=== PATIENT | male | born 1965 | race Caucasian/White ===

== ENCOUNTER 2016-05-05 13:03 | Day surgery (SDC) | payer OTHER ==
[~2016-05-05] VITALS: Ht 182.9 cm; Wt 123.3 kg
[~2016-05-05 13:03] MED LIST: ALBUTEROL0.09 MG/A1 IH; AMBIEN 10MG10 MG PO; ASPIRIN 81M81 MG/TA2 PO; BENICAR 20MG TA20 MG PO; BRILINTA90 MG PO; CELEXA 20MG20 MG/TAB PO; COLACE 100100 MG/CAP PO; CRESTOR10 MG PO; DAZIDOX10 MG PO; DESYREL 100MG100 MG PO; DESYREL 50MG50 MG PO; FLEXERIL 1010 MG/TAB PO; FLEXERIL10 MG PO; FLOMAX 0.40.4 MG/CAP PO; FLONASEALLERGY NS; FLOVENT 44MCG I13 GM IH; GENTLE LAXATIVE5 MG PO; HCTZ 25MG TAB25 MG PO; KLONOPIN 0.5MG0.5 MG PO; KLONOPIN WAFER0.5 MG PO; LEXAPRO 10MG10 MG PO; LIPITOR 40MG TA40 MG PO; LIPITOR20 MG PO; LOPRESSOR 225 MG/TAB PO; MINIPRESS 1M1 MG/CAP PO; MULTI VITAMINS1 TAB PO; MULTIPLE VITAMI1 TA5 PO; NITROQUICK0.4 MG SL; NITROSTAT0.6 MG SL; NO HOME MEDICATIONS; NORCO 325 MG-51 TAB PO; OXAYDO7.5 MG PO; OXY IR5 MG PO; PRILOTC PO; PRINIVIL10 MG PO; PRINIVIL40 MG PO; PROTONIX 40MG T40 MG PO; PYRIDIUM200 M1 PO; VITAMIN D3400 IU PO; ZITHROMAX 250M250 MG PO; ZOCOR 40MG40 MG PO; ZOLOFT 100MG100 MG PO
[2016-05-05 14:23] VITALS: BP 140/78; PULSE 72; TEMP 97.9
[2016-05-05 16:10] VITALS: BP 136/78; PULSE 70; TEMP 98.1
[2016-05-05 16:25] VITALS: BP 152/74; PULSE 74
[2016-05-05 16:40] VITALS: BP 134/77; PULSE 79
[2016-05-05] MEDS ORDERED: CIPRO 500MG TA500 MG PO (16:46)
[2016-05-05 16:55] VITALS: BP 143/82; PULSE 68
[2016-05-05 17:20] VITALS: BP 164/88; PULSE 82
== END 2016-05-05 17:37 | disposition home or self-care (01) ==
LOC: SDCO 13:03
DX: D09.0 Carcinoma in situ of bladder (principal); C67.6 Malignant neoplasm of ureteric orifice; F17.210 Nicotine dependence, cigarettes, uncomplicated; Z85.51 Personal history of malignant neoplasm of bladder; Z85.53 Personal history of malignant neoplasm of renal pelvis; I12.9 Hypertensive chronic kidney disease with stage 1 through stage 4 chronic kidney disease, or unspecified chronic kidney disease; N18.3 Chronic kidney disease, stage 3 (moderate)
CPT/HCPCS: J0690; J1100; J2405; J2704; J3010; J7120; Q9967

== ENCOUNTER 2016-06-10 08:30 | Inpatient (IN) | payer OTHER ==
[~2016-06-10] VITALS: Ht 182.9 cm; Wt 120.9 kg
[~2016-06-10 08:30] MED LIST changes: +CIPRO 500MG TA500 MG PO
[2016-06-23] VITALS (12 sets, daily range): BP systolic 92–125; BP diastolic 45–76; PULSE 71–122; TEMP 98–99.2
[2016-06-23] MEDS ORDERED: PRINIVIL10 MG PO (06:16)
[2016-06-23 06:31] LABS: MEAN CELL VOLUME 92 fl (80.0-100.0); MEAN CORPUSCULAR HGB CONC 33 g/dl (33.0-37.0); MEAN PLATELET VOLUME 8.7 fl (7.4-10.4); PLATELET COUNT 190 K/mm3 (130-400); RED BLOOD COUNT 3.78 M/mm3 (4.20-5.60); REDCELL DISTRIBUTION WIDTH-CV 14.2 % (11.5-14.5); WHITE BLOOD COUNT 5.6 K/mm3 (4.8-10.8)
[2016-06-23 06:44] LABS: HEMATOCRIT 34.6 % (42.0-52.0); HEMOGLOBIN 11.3 g/dl (13.5-18.0); MEAN CORPUSCULAR HEMOGLOBIN 30 pg (27.0-31.0)
[2016-06-23 14:29] LABS: MEAN CELL VOLUME 90 fl (80.0-100.0); MEAN CORPUSCULAR HGB CONC 33 g/dl (33.0-37.0); PLATELET COUNT 144 K/mm3 (130-400); RED BLOOD COUNT 3.32 M/mm3 (4.20-5.60); REDCELL DISTRIBUTION WIDTH-CV 14.6 % (11.5-14.5); WHITE BLOOD COUNT 11.8 K/mm3 (4.8-10.8)
[2016-06-23 14:36] LABS: ADD PATHOLOGY DIFF REVIEW NO; CALCIUM 7.1 mg/dL (8.4-10.2); CREATININE, serum 2.06 mg/dL (0.66-1.25); HEMATOCRIT 29.8 % (42.0-52.0); HEMOGLOBIN 9.9 g/dl (13.5-18.0); MEAN CORPUSCULAR HEMOGLOBIN 30 pg (27.0-31.0)
[2016-06-23 15:08] LABS: BAND 43 % (0-10); EOSINOPHIL 1 % (0-4); NEUTROPHILS 51 % (42.0-75.2); PLATELET ESTIMATE NORMAL (NORMAL); TOTAL CELLS COUNTED 100
[2016-06-24] VITALS (18 sets, daily range): BP systolic 115–164; BP diastolic 42–94; PULSE 91–120; TEMP 97.5–98.5
[2016-06-24 06:55] LABS: MEAN CELL VOLUME 89 fl (80.0-100.0); MEAN CORPUSCULAR HGB CONC 33 g/dl (33.0-37.0); MEAN PLATELET VOLUME 8.9 fl (7.4-10.4); PLATELET COUNT 168 K/mm3 (130-400); RED BLOOD COUNT 3.57 M/mm3 (4.20-5.60); REDCELL DISTRIBUTION WIDTH-CV 15.5 % (11.5-14.5); WHITE BLOOD COUNT 18.2 K/mm3 (4.8-10.8)
[2016-06-24 07:02] LABS: ADD PATHOLOGY DIFF REVIEW NO; HEMATOCRIT 31.7 % (42.0-52.0); HEMOGLOBIN 10.6 g/dl (13.5-18.0); MEAN CORPUSCULAR HEMOGLOBIN 30 pg (27.0-31.0)
[2016-06-24 07:17] LABS: CREATININE, serum 1.98 mg/dL (0.66-1.25); MAGNESIUM 1.5 mg/dL (1.6-2.3); PHOSPHOROUS 1.8 mg/dL (2.5-4.5)
[2016-06-24 07:23] LABS: POTASSIUM 6.1 mmol/L (3.4-5.0)
[2016-06-24 10:04] LABS: BAND 21 % (0-10); NEUTROPHILS 69 % (42.0-75.2); PLATELET ESTIMATE NORMAL (NORMAL); TOTAL CELLS COUNTED 100
[2016-06-24 10:07] LABS: ANISOCYTOSIS 1+; TOXIC GRANULATION PRESENT
[2016-06-25] VITALS (13 sets, daily range): BP systolic 86–136; BP diastolic 42–104; PULSE 69–128; TEMP 97.2–98.3
[2016-06-25 08:04] LABS: ALBUMIN 2.5 gm/dL (3.5-5.0); CALCIUM 6.2 mg/dL (8.4-10.2); CREATININE, serum 3.07 mg/dL (0.66-1.25); MAGNESIUM 1.5 mg/dL (1.6-2.3); PHOSPHOROUS 3.8 mg/dL (2.5-4.5); POTASSIUM 5.2 mmol/L (3.4-5.0)
[2016-06-25 11:14] LABS: MEAN CELL VOLUME 92 fl (80.0-100.0); MEAN CORPUSCULAR HGB CONC 33 g/dl (33.0-37.0); MEAN PLATELET VOLUME 9.3 fl (7.4-10.4); PLATELET COUNT 150 K/mm3 (130-400); RED BLOOD COUNT 3.04 M/mm3 (4.20-5.60); REDCELL DISTRIBUTION WIDTH-CV 15.6 % (11.5-14.5); WHITE BLOOD COUNT 18.3 K/mm3 (4.8-10.8)
[2016-06-25 11:15] LABS: HEMATOCRIT 27.9 % (42.0-52.0); HEMOGLOBIN 9.2 g/dl (13.5-18.0); MEAN CORPUSCULAR HEMOGLOBIN 30 pg (27.0-31.0)
[2016-06-25 11:16] LABS: ADD PATHOLOGY DIFF REVIEW NO
[2016-06-25 12:03] LABS: BAND 22 % (0-10); EOSINOPHIL 1 % (0-4); METAMYELOCYTE 2 % (0-0); PLATELET ESTIMATE NORMAL (NORMAL)
[2016-06-25 12:04] LABS: NEUTROPHILS 60 % (42.0-75.2); TOTAL CELLS COUNTED 102
[2016-06-26] VITALS (7 sets, daily range): BP systolic 111–125; BP diastolic 58–70; PULSE 102–124; TEMP 96.9–98.5
[2016-06-26 08:03] LABS: ALBUMIN 2.2 gm/dL (3.5-5.0); CREATININE, serum 3.08 mg/dL (0.66-1.25); MAGNESIUM 1.7 mg/dL (1.6-2.3); POTASSIUM 4.1 mmol/L (3.4-5.0)
[2016-06-26 08:27] LABS: CALCIUM 5.1 mg/dL (8.4-10.2)
[2016-06-26 11:29] LABS: MEAN CELL VOLUME 94 fl (80.0-100.0); MEAN CORPUSCULAR HGB CONC 32 g/dl (33.0-37.0); MEAN PLATELET VOLUME 9.6 fl (7.4-10.4); PLATELET COUNT 140 K/mm3 (130-400); RED BLOOD COUNT 2.68 M/mm3 (4.20-5.60); REDCELL DISTRIBUTION WIDTH-CV 15.7 % (11.5-14.5); WHITE BLOOD COUNT 12.7 K/mm3 (4.8-10.8)
[2016-06-26 11:34] LABS: HEMATOCRIT 25.2 % (42.0-52.0); MEAN CORPUSCULAR HEMOGLOBIN 30 pg (27.0-31.0)
[2016-06-26] MEDS ORDERED: LOPRESSOR 225 MG/TAB PO (14:09)
[2016-06-27 02:11] VITALS: BP 106/64; PULSE 123; TEMP 97.5
[2016-06-27 06:02] VITALS: BP 111/61; PULSE 114; TEMP 97.5
[2016-06-27 09:53] LABS: MEAN CELL VOLUME 94 fl (80.0-100.0); MEAN CORPUSCULAR HGB CONC 32 g/dl (33.0-37.0); MEAN PLATELET VOLUME 9.9 fl (7.4-10.4); PLATELET COUNT 158 K/mm3 (130-400); RED BLOOD COUNT 2.72 M/mm3 (4.20-5.60); REDCELL DISTRIBUTION WIDTH-CV 15.5 % (11.5-14.5)
[2016-06-27 10:07] LABS: ALBUMIN 2.5 gm/dL (3.5-5.0); CREATININE, serum 3.29 mg/dL (0.66-1.25); PHOSPHOROUS 3.8 mg/dL (2.5-4.5); POTASSIUM 4.3 mmol/L (3.4-5.0)
[2016-06-27 10:11] LABS: CALCIUM 5.9 mg/dL (8.4-10.2)
[2016-06-27 10:12] LABS: ADD PATHOLOGY DIFF REVIEW NO; HEMATOCRIT 25.5 % (42.0-52.0); HEMOGLOBIN 8.2 g/dl (13.5-18.0); MEAN CORPUSCULAR HEMOGLOBIN 30 pg (27.0-31.0)
[2016-06-27 10:47] LABS: BAND 36 % (0-10); METAMYELOCYTE 3 % (0-0); MYELOCYTE 1 % (0-0); NEUTROPHILS 40 % (42.0-75.2); PLATELET ESTIMATE NORMAL (NORMAL); TOTAL CELLS COUNTED 100
[2016-06-27 11:05] LABS: TOXIC GRANULATION PRESENT
[2016-06-27 11:06] LABS: ANISOCYTOSIS 1+
[2016-06-27 11:10] VITALS: BP 131/99; PULSE 113; TEMP 98.3
[2016-06-27 16:11] LABS: ADRENOCORTICOTROPIC HORMONE 8.7 pg/mL (())
[2016-06-27 17:57] LABS: PH 6 (5-8); SQUAMOUS EPITHELIAL None Seen /hpf; URINE APPEARANCE Clear; URINE BACTERIA None Seen /hpf; URINE BILIRUBIN Negative (NEGATIVE); URINE BLOOD 2+ (NEGATIVE); URINE COLOR Yellow; URINE GLUCOSE Negative (NEGATIVE); URINE KETONE Trace (NEGATIVE); URINE RBC >50 /hpf; URINE UROBILINOGEN Negative (NEGATIVE)
[2016-06-27 18:11] VITALS: BP 112/67; PULSE 93; TEMP 98.6
[2016-06-27 22:43] VITALS: BP 153/58; BP 176/74; PULSE 107; TEMP 98
[2016-06-28] VITALS (8 sets, daily range): BP systolic 132–172; BP diastolic 70–89; PULSE 71–94; TEMP 97.7–98.8
[2016-06-28 08:25] LABS: ALBUMIN 2.5 gm/dL (3.5-5.0); CALCIUM 7.5 mg/dL (8.4-10.2); CREATININE, serum 3.16 mg/dL (0.66-1.25); MAGNESIUM 2.1 mg/dL (1.6-2.3); PHOSPHOROUS 4.1 mg/dL (2.5-4.5); POTASSIUM 4.1 mmol/L (3.4-5.0)
[2016-06-28 14:14] LABS: INFLUENZA B NEGATIVE
[2016-06-29 02:09] VITALS: BP 157/81; PULSE 77; TEMP 97.7
[2016-06-29 06:01] VITALS: BP 167/82; PULSE 90; TEMP 98.2
[2016-06-29 07:04] LABS: ADD PATHOLOGY DIFF REVIEW NO
[2016-06-29 07:27] LABS: MEAN CORPUSCULAR HGB CONC 33 g/dl (33.0-37.0); MEAN PLATELET VOLUME 9.8 fl (7.4-10.4); PLATELET COUNT 175 K/mm3 (130-400); RED BLOOD COUNT 2.77 M/mm3 (4.20-5.60); REDCELL DISTRIBUTION WIDTH-CV 14.9 % (11.5-14.5)
[2016-06-29 07:32] LABS: ALBUMIN 2.4 gm/dL (3.5-5.0); CALCIUM 7.8 mg/dL (8.4-10.2); CREATININE, serum 2.83 mg/dL (0.66-1.25); MAGNESIUM 1.9 mg/dL (1.6-2.3); PHOSPHOROUS 3.9 mg/dL (2.5-4.5); POTASSIUM 3.4 mmol/L (3.4-5.0)
[2016-06-29 07:39] LABS: HEMATOCRIT 24.5 % (42.0-52.0); HEMOGLOBIN 8.1 g/dl (13.5-18.0); MEAN CELL VOLUME 88 fl (80.0-100.0); MEAN CORPUSCULAR HEMOGLOBIN 29 pg (27.0-31.0)
[2016-06-29 08:17] LABS: BAND 51 % (0-10); METAMYELOCYTE 3 % (0-0); MYELOCYTE 1 % (0-0); NEUTROPHILS 33 % (42.0-75.2)
[2016-06-29 08:18] LABS: TOTAL CELLS COUNTED 200
[2016-06-29 08:19] LABS: ANISOCYTOSIS 1+; HYPOCHROMIA 1+; PLATELET ESTIMATE NORMAL (NORMAL); TOXIC GRANULATION PRESENT
[2016-06-29 10:30] VITALS: BP 168/76; PULSE 87; TEMP 98.3
[2016-06-29 14:12] VITALS: BP 171/83; PULSE 84; TEMP 98.4
[2016-06-29 17:22] VITALS: BP 163/76; PULSE 95; TEMP 98.3
[2016-06-29 22:16] VITALS: BP 160/81; PULSE 76; TEMP 98.3
[2016-06-30 04:49] VITALS: BP 177/85; PULSE 88; TEMP 98.4
[2016-06-30 07:27] LABS: MEAN CELL VOLUME 86 fl (80.0-100.0); MEAN CORPUSCULAR HGB CONC 35 g/dl (33.0-37.0); MEAN PLATELET VOLUME 9.7 fl (7.4-10.4); PLATELET COUNT 158 K/mm3 (130-400); REDCELL DISTRIBUTION WIDTH-CV 15.2 % (11.5-14.5)
[2016-06-30 07:41] LABS: HEMATOCRIT 23.2 % (42.0-52.0); MEAN CORPUSCULAR HEMOGLOBIN 30 pg (27.0-31.0); WHITE BLOOD COUNT 27.1 K/mm3 (4.8-10.8)
[2016-06-30 07:43] LABS: ALBUMIN 2.5 gm/dL (3.5-5.0); CALCIUM 7.9 mg/dL (8.4-10.2); CALCIUM 8.1 mg/dL (8.4-10.2); CREATININE, serum 2.76 mg/dL (0.66-1.25); CREATININE, serum 2.86 mg/dL (0.66-1.25); MAGNESIUM 1.9 mg/dL (1.6-2.3); PHOSPHOROUS 3.7 mg/dL (2.5-4.5); POTASSIUM 3.4 mmol/L (3.4-5.0)
[2016-06-30 08:56] LABS: BAND 43 % (0-10); METAMYELOCYTE 2 % (0-0); NEUTROPHILS 49 % (42.0-75.2); TOTAL CELLS COUNTED 101
[2016-06-30 08:57] LABS: HYPOCHROMIA 3+; TOXIC GRANULATION PRESENT
[2016-06-30 08:58] LABS: ADD PATHOLOGY DIFF REVIEW YES; MICROCYTOSIS 2+
[2016-06-30 09:51] VITALS: BP 160/94; PULSE 107; TEMP 98.1
[2016-06-30 13:42] VITALS: BP 155/77; PULSE 88; TEMP 97.9
[2016-06-30 17:00] VITALS: BP 138/71; PULSE 95; TEMP 98.1
[2016-06-30 22:04] VITALS: BP 147/73; PULSE 101; TEMP 98
[2016-07-01] VITALS (10 sets, daily range): BP systolic 111–155; BP diastolic 59–86; PULSE 79–98; TEMP 97.5–98.5
[2016-07-01 06:09] LABS: MEAN CELL VOLUME 85 fl (80.0-100.0); MEAN CORPUSCULAR HGB CONC 34 g/dl (33.0-37.0); MEAN PLATELET VOLUME 9.6 fl (7.4-10.4); PLATELET COUNT 136 K/mm3 (130-400); RED BLOOD COUNT 2.59 M/mm3 (4.20-5.60); REDCELL DISTRIBUTION WIDTH-CV 15.3 % (11.5-14.5)
[2016-07-01 06:14] LABS: HEMATOCRIT 22.1 % (42.0-52.0); HEMOGLOBIN 7.6 g/dl (13.5-18.0); MEAN CORPUSCULAR HEMOGLOBIN 29 pg (27.0-31.0)
[2016-07-01 06:15] LABS: ADD PATHOLOGY DIFF REVIEW NO; WHITE BLOOD COUNT 27.8 K/mm3 (4.8-10.8)
[2016-07-01 06:29] LABS: ALBUMIN 2.3 gm/dL (3.5-5.0); CALCIUM 7.8 mg/dL (8.4-10.2); CREATININE, serum 2.79 mg/dL (0.66-1.25); MAGNESIUM 1.7 mg/dL (1.6-2.3); POTASSIUM 3.1 mmol/L (3.4-5.0)
[2016-07-01 07:04] LABS: BAND 22 % (0-10); EOSINOPHIL 2 % (0-4); METAMYELOCYTE 1 % (0-0); MYELOCYTE 1 % (0-0); TOXIC GRANULATION PRESENT
[2016-07-01 07:09] LABS: NEUTROPHILS 63 % (42.0-75.2)
[2016-07-01 07:10] LABS: ANISOCYTOSIS 1+; POLYCHROMASIA 1+; TOTAL CELLS COUNTED 200
[2016-07-01 08:40] LABS: PATHOLOGY DIFF REVIEW OK
[2016-07-02] VITALS (10 sets, daily range): BP systolic 112–131; BP diastolic 53–72; PULSE 81–101; TEMP 98.1–98.5
[2016-07-02 07:10] LABS: ALBUMIN 2.6 gm/dL (3.5-5.0); CALCIUM 7.8 mg/dL (8.4-10.2); CREATININE, serum 2.91 mg/dL (0.66-1.25); PHOSPHOROUS 3.6 mg/dL (2.5-4.5); POTASSIUM 3.4 mmol/L (3.4-5.0)
[2016-07-02 10:02] LABS: ADD PATHOLOGY DIFF REVIEW NO
[2016-07-02 10:19] LABS: MEAN CELL VOLUME 85 fl (80.0-100.0); MEAN CORPUSCULAR HGB CONC 35 g/dl (33.0-37.0); MEAN PLATELET VOLUME 10.1 fl (7.4-10.4); PLATELET COUNT 150 K/mm3 (130-400); REDCELL DISTRIBUTION WIDTH-CV 15.4 % (11.5-14.5)
[2016-07-02 10:20] LABS: ADJUSTED CALCIUM 8.9 mg/dL (8.4-10.2); ALBUMIN 2.3 gm/dL (3.5-5.0); BILIRUBIN,TOTAL 2.7 mg/dL (0.0-1.0); CALCIUM 7.5 mg/dL (8.4-10.2); CREATININE, serum 2.96 mg/dL (0.66-1.25); POTASSIUM 3.1 mmol/L (3.4-5.0); TOTAL PROTEIN 5.3 gm/dL (6.4-8.2)
[2016-07-02 10:22] LABS: HEMATOCRIT 24.6 % (42.0-52.0); HEMOGLOBIN 8.6 g/dl (13.5-18.0); MEAN CORPUSCULAR HEMOGLOBIN 30 pg (27.0-31.0); WHITE BLOOD COUNT 26.5 K/mm3 (4.8-10.8)
[2016-07-02 12:19] LABS: BAND 17 % (0-10); BASOPHIL 1 % (0-2); EOSINOPHIL 1 % (0-4); METAMYELOCYTE 2 % (0-0); MYELOCYTE 1 % (0-0); PLATELET ESTIMATE NORMAL (NORMAL)
[2016-07-02 12:20] LABS: TOXIC GRANULATION PRESENT
[2016-07-02 12:21] LABS: ANISOCYTOSIS 1+; POLYCHROMASIA 1+
[2016-07-02 12:23] LABS: PLATELET ESTIMATE NORMAL (NORMAL)
[2016-07-02 12:28] LABS: HYPOCHROMIA 1+; MICROCYTOSIS 1+; NEUTROPHILS 71 % (42.0-75.2); OVALOCYTES 1+; TOTAL CELLS COUNTED 200
[2016-07-02 12:29] LABS: POIKILOCYTOSIS 1+
[2016-07-03] VITALS (8 sets, daily range): BP systolic 116–146; BP diastolic 59–74; PULSE 79–95; TEMP 97.4–98.6
[2016-07-03 06:48] LABS: MEAN CELL VOLUME 86 fl (80.0-100.0); MEAN CORPUSCULAR HGB CONC 34 g/dl (33.0-37.0); MEAN PLATELET VOLUME 9.8 fl (7.4-10.4); PLATELET COUNT 126 K/mm3 (130-400); RED BLOOD COUNT 2.93 M/mm3 (4.20-5.60); REDCELL DISTRIBUTION WIDTH-CV 15.6 % (11.5-14.5)
[2016-07-03 06:56] LABS: INR 1.2 (0.8-3.0)
[2016-07-03 06:57] LABS: HEMATOCRIT 25.1 % (42.0-52.0); HEMOGLOBIN 8.6 g/dl (13.5-18.0); MEAN CORPUSCULAR HEMOGLOBIN 29 pg (27.0-31.0)
[2016-07-03 07:01] LABS: ALBUMIN 2.3 gm/dL (3.5-5.0); CALCIUM 7.7 mg/dL (8.4-10.2); CREATININE, serum 3.03 mg/dL (0.66-1.25); MAGNESIUM 2.2 mg/dL (1.6-2.3); PHOSPHOROUS 3.8 mg/dL (2.5-4.5); POTASSIUM 3.4 mmol/L (3.4-5.0)
[2016-07-03 07:07] LABS: ADD PATHOLOGY DIFF REVIEW NO; WHITE BLOOD COUNT 22.6 K/mm3 (4.8-10.8)
[2016-07-03 07:20] LABS: C-REACTIVE PROTEIN 19.2 mg/dL (0.0-0.9)
[2016-07-03 08:26] LABS: BAND 35 % (0-10); BASOPHIL 1 % (0-2); METAMYELOCYTE 1 % (0-0); MYELOCYTE 1 % (0-0); NEUTROPHILS 57 % (42.0-75.2)
[2016-07-03 08:27] LABS: TOXIC GRANULATION PRESENT
[2016-07-03 08:29] LABS: TOTAL CELLS COUNTED 200
[2016-07-03 08:31] LABS: ANISOCYTOSIS 1+; HYPOCHROMIA 1+; PLATELET ESTIMATE DECREASED (NORMAL); POLYCHROMASIA 1+
== END 2016-07-03 16:08 | disposition home health service (06) | DRG 653 ==
LOC: SURG 06-23 05:25 → INPTSU 06-23 05:25 → SURG 06-23 07:30
PROVIDERS: Internal Medicine; Internal Medicine Nephrology; Internal Medicine Pulmonary Disease; Nurse Anesthetist, Certified Registered; Nurse Practitioner Family; Physician Assistant; Urology
PROC: 07BH0ZX Excision of Right Inguinal Lymphatic, Open Approach, Diagnostic (ICD-10-PCS; 2016-06-23)
PROC: 0T1 Urinary System, Bypass (ICD-10-PCS; 2016-06-23)
PROC: 0DTJ0ZZ Resection of Appendix, Open Approach (ICD-10-PCS; 2016-06-23)
PROC: 0T760DZ Dilation of Right Ureter with Intraluminal Device, Open Approach (ICD-10-PCS; 2016-06-23)
PROC: 0TTB0ZZ Resection of Bladder, Open Approach (ICD-10-PCS; principal; 2016-06-23 07:30)
PROC: 0B948ZX Drainage of Right Upper Lobe Bronchus, Via Natural or Artificial Opening Endoscopic, Diagnostic (ICD-10-PCS; 2016-07-03)
PROC: 0B968ZX Drainage of Right Lower Lobe Bronchus, Via Natural or Artificial Opening Endoscopic, Diagnostic (ICD-10-PCS; 2016-07-03)
PROC: 0B988ZX Drainage of Left Upper Lobe Bronchus, Via Natural or Artificial Opening Endoscopic, Diagnostic (ICD-10-PCS; 2016-07-03)
PROC: 0B9B8ZX Drainage of Left Lower Lobe Bronchus, Via Natural or Artificial Opening Endoscopic, Diagnostic (ICD-10-PCS; 2016-07-03)
DX: C67.8 Malignant neoplasm of overlapping sites of bladder (principal); J18.9 Pneumonia, unspecified organism; E87.2 Acidosis; J90 Pleural effusion, not elsewhere classified; N17.9 Acute kidney failure, unspecified; E87.1 Hypo-osmolality and hyponatremia; I25.10 Atherosclerotic heart disease of native coronary artery without angina pectoris; I12.9 Hypertensive chronic kidney disease with stage 1 through stage 4 chronic kidney disease, or unspecified chronic kidney disease; N18.3 Chronic kidney disease, stage 3 (moderate); E87.5 Hyperkalemia; Z85.53 Personal history of malignant neoplasm of renal pelvis; Z95.5 Presence of coronary angioplasty implant and graft; F17.210 Nicotine dependence, cigarettes, uncomplicated; D50.0 Iron deficiency anemia secondary to blood loss (chronic); E83.42 Hypomagnesemia; E83.51 Hypocalcemia; E87.6 Hypokalemia
CPT/HCPCS: 99223; 99232-AI; 99233-AI; A9284; C1751; J0610; J0690; J0692; J0694; J1100; J1170; J1644; J1650; J1940; J1956; J2250; J2270; J2370; J2405; J2543; J2550; J2704; J2765; J2795; J3010; J3370; J3475; J7030; J7040; J7050; J7070; J7120; P9016

== ENCOUNTER → 2016-08-24 | Outpatient (CLI) | payer OTHER ==
[2016-08-24 21:09] LABS: CREATININE, serum 2.76 mg/dL (0.66-1.25); POTASSIUM 5.7 mmol/L (3.4-5.0)
[2016-08-24 21:13] LABS: HEMATOCRIT 30.7 % (42.0-52.0); HEMOGLOBIN 9.9 g/dl (13.5-18.0)
[2016-08-25 13:11] LABS: CREATININE OTHER SOURCE 83 mg/dL (())
== END ==
LOC: ZCOL.LAB 19:03
PROVIDERS: Internal Medicine
DX: Z02.89 Encounter for other administrative examinations (principal)

== ENCOUNTER → 2016-09-03 | Outpatient (CLI) | payer OTHER ==
[2016-09-03 10:05] LABS: HEMATOCRIT 29.9 % (42.0-52.0); HEMOGLOBIN 9.5 g/dl (13.5-18.0)
[2016-09-03 10:15] LABS: CALCIUM 9.6 mg/dL (8.4-10.2); CREATININE, serum 1.84 mg/dL (0.66-1.25)
== END ==
LOC: COL.LAB 09:16
DX: N18.3 Chronic kidney disease, stage 3 (moderate) (principal); D63.1 Anemia in chronic kidney disease

== ENCOUNTER 2017-02-09 05:25 | Day surgery (SDC) | payer OTHER ==
[2017-02-09] VITALS (12 sets, daily range): BP systolic 113–135; BP diastolic 65–82; PULSE 64–100; TEMP 97.4–98.4
[~2017-02-09] VITALS: Ht 182.9 cm; Wt 105.8 kg
[2017-02-09] MEDS ORDERED: MULTIVITAMIN SEN PO (06:20)
[2017-02-09 06:21] LABS: CALCIUM 9.5 mg/dL (8.4-10.2); CREATININE, serum 1.91 mg/dL (0.66-1.25); POTASSIUM 4.1 mmol/L (3.4-5.0)
[2017-02-09] MEDS ORDERED: LOPRESSOR 550 MG/TAB PO (06:21)
[2017-02-09] MEDS ORDERED: REFRESH PLUS 00.4 M1 OP (06:24)
[2017-02-09] MEDS ORDERED: VITAMIN D 400400 IU PO (06:24)
[2017-02-09] MEDS ORDERED: FLONASEALLERGY NS (06:25)
[2017-02-09] MEDS ORDERED: FERROUS SU325 MG/TAB PO (06:26)
[2017-02-09] MEDS ORDERED: ANUSOL-HC SUPPO25 MG RC (06:26)
[2017-02-09] MEDS ORDERED: FLEXERIL 1010 MG/TAB PO (13:55)
[2017-02-10 02:07] VITALS: BP 141/72; PULSE 88; TEMP 97.9
[2017-02-10 04:59] VITALS: BP 145/80; PULSE 81; TEMP 98.1
[2017-02-10 10:59] VITALS: BP 130/81; PULSE 92; TEMP 98.4
== END 2017-02-10 12:33 | disposition home or self-care (01) ==
LOC: SDCO 05:25 → SURG 10:06 → SDCO 02-10 12:33
PROVIDERS: Registered Nurse
DX: C67.9 Malignant neoplasm of bladder, unspecified (principal); Z45.2 Encounter for adjustment and management of vascular access device; D64.9 Anemia, unspecified; I25.10 Atherosclerotic heart disease of native coronary artery without angina pectoris; F32.9 Major depressive disorder, single episode, unspecified; E78.00 Pure hypercholesterolemia, unspecified; F43.10 Post-traumatic stress disorder, unspecified; I12.9 Hypertensive chronic kidney disease with stage 1 through stage 4 chronic kidney disease, or unspecified chronic kidney disease; K58.9 Irritable bowel syndrome, unspecified; F17.210 Nicotine dependence, cigarettes, uncomplicated; I25.2 Old myocardial infarction; K21.9 Gastro-esophageal reflux disease without esophagitis; F41.9 Anxiety disorder, unspecified; N18.3 Chronic kidney disease, stage 3 (moderate); E66.9 Obesity, unspecified; Z85.53 Personal history of malignant neoplasm of renal pelvis; Z90.5 Acquired absence of kidney; Z84.1 Family history of disorders of kidney and ureter; Z82.49 Family history of ischemic heart disease and other diseases of the circulatory system; Z83.3 Family history of diabetes mellitus
CPT/HCPCS: OP; J0690; J1100; J1170; J1885; J2270; J2405; J2704; J3010; J7120

== ENCOUNTER → 2017-06-04 | Outpatient (CLI) | payer OTHER ==
[~2017-06-04] MED LIST changes: +ANUSOL-HC SUPPO25 MG RC; +FERROUS SU325 MG/TAB PO; +LOPRESSOR 550 MG/TAB PO; +MULTIVITAMIN SEN PO; +REFRESH PLUS 00.4 M1 OP; +VITAMIN D 400400 IU PO
== END ==
LOC: COL.RAD 10:13
DX: Z85.53 Personal history of malignant neoplasm of renal pelvis (principal); Z85.51 Personal history of malignant neoplasm of bladder; Z90.6 Acquired absence of other parts of urinary tract; Z90.5 Acquired absence of kidney

== ENCOUNTER → 2018-01-18 | Outpatient (CLI) | payer OTHER | LOC: COL.RAD 01-17 11:30 | DX: K86.89 Other specified diseases of pancreas (principal); Z85.51 Personal history of malignant neoplasm of bladder; Z85.53 Personal history of malignant neoplasm of renal pelvis; Z90.5 Acquired absence of kidney; Z90.49 Acquired absence of other specified parts of digestive tract; Z98.890 Other specified postprocedural states ==

== ENCOUNTER → 2018-06-20 | Outpatient (CLI) | payer MEDICARE ==
[~2018-06-20] MED LIST changes: +NEURONTIN300 MG/CAP PO
== END ==
LOC: COL.RAD 10:00
DX: K85.91 Acute pancreatitis with uninfected necrosis, unspecified (principal); K86.3 Pseudocyst of pancreas; Z90.6 Acquired absence of other parts of urinary tract
CPT/HCPCS: Q9967

== ENCOUNTER 2018-10-14 13:44 | Day surgery (SDC) | payer OTHER ==
[~2018-10-14] VITALS: Ht 182.9 cm; Wt 104.5 kg
[2018-10-14] MEDS ORDERED: NORVASC 10MG10 MG PO (14:08)
[2018-10-14] MEDS ORDERED: NEURONTIN300 MG/CAP PO (14:08)
[2018-10-14] MEDS ORDERED: IRON TABLETS325 MG PO (14:09)
[2018-10-14] MEDS ORDERED: KLONOPIN 0.5MG0.5 MG PO (14:10)
[2018-10-14] MEDS ORDERED: LOPRESSOR 225 MG/TAB PO (14:11)
[2018-10-14] MEDS ORDERED: DESYREL DIVIDO300 MG PO (14:12)
[2018-10-14] MEDS ORDERED: MULTI VITAMINS1 TAB PO (14:12)
[2018-10-14] MEDS ORDERED: ASPIRIN E.C. 8181 MG PO (14:12)
[2018-10-14] MEDS ORDERED: PRILOSEC 20MG20 MG (14:13)
[2018-10-14] MEDS ORDERED: DAZIDOX10 MG PO (14:13)
[2018-10-14] MEDS ORDERED: ZOLOFT 100MG100 MG PO (14:14)
[2018-10-14] MEDS ORDERED: NITROSTAT0.4 MG/TAB SL (14:14)
[2018-10-14 14:32] VITALS: BP 122/77; PULSE 68; TEMP 98.2
[2018-10-14 16:15] VITALS: BP 122/88; PULSE 66; TEMP 97.3
--- NOTE | 2018-10-14 16:15 | NUR ---
Pt to GI bay 4 via cart from [facility]. Pt awake and alert. Ambulates to recliner with stand by assistance. Warm blanket provided. Son in law in room. Does not want anything to eat or drink at this time. Will continue to monitor. Call light within reach.
[2018-10-14 16:30] VITALS: BP 125/72; PULSE 53
--- NOTE | 2018-10-14 16:30 | NUR ---
Discharge instructions reviewed. Pt voices understanding. IV site discontinued with all parts intact. Pt up to dress. Call light within reach.
--- NOTE | 2018-10-14 16:49 | NUR ---
Pt escorted to private car via wheel chair. Pt accompanied home by his son in law Herrera.
== END 2018-10-14 16:50 | disposition home or self-care (01) ==
LOC: SDCO 13:44
DX: Z12.11 Encounter for screening for malignant neoplasm of colon (principal); K63.5 Polyp of colon; K57.30 Diverticulosis of large intestine without perforation or abscess without bleeding; F32.9 Major depressive disorder, single episode, unspecified; F41.9 Anxiety disorder, unspecified; R53.82 Chronic fatigue, unspecified; K21.9 Gastro-esophageal reflux disease without esophagitis; E66.9 Obesity, unspecified; I25.10 Atherosclerotic heart disease of native coronary artery without angina pectoris; I25.2 Old myocardial infarction; F17.210 Nicotine dependence, cigarettes, uncomplicated; J40 Bronchitis, not specified as acute or chronic; M19.90 Unspecified osteoarthritis, unspecified site; F43.10 Post-traumatic stress disorder, unspecified; G89.29 Other chronic pain; I12.9 Hypertensive chronic kidney disease with stage 1 through stage 4 chronic kidney disease, or unspecified chronic kidney disease; N18.3 Chronic kidney disease, stage 3 (moderate); Z85.54 Personal history of malignant neoplasm of ureter; Z85.53 Personal history of malignant neoplasm of renal pelvis; Z85.51 Personal history of malignant neoplasm of bladder; Z93.2 Ileostomy status; Z86.010 Personal history of colon polyps; Z79.82 Long term (current) use of aspirin; Z68.32 Body mass index [BMI] 32.0-32.9, adult; Z90.5 Acquired absence of kidney; Z90.6 Acquired absence of other parts of urinary tract; Z92.21 Personal history of antineoplastic chemotherapy
CPT/HCPCS: J2704

== ENCOUNTER → 2018-11-30 | Outpatient (CLI) | payer MEDICARE ==
[~2018-11-30] MED LIST changes: +ASPIRIN E.C. 8181 MG PO; +DESYREL DIVIDO300 MG PO; +IRON TABLETS325 MG PO; +NITROSTAT0.4 MG/TAB SL; +NORVASC 10MG10 MG PO; +PRILOSEC 20MG20 MG
== END ==
LOC: COL.RAD 07:51
DX: K86.3 Pseudocyst of pancreas (principal); Z90.5 Acquired absence of kidney; Z85.528 Personal history of other malignant neoplasm of kidney
CPT/HCPCS: Q9967

== ENCOUNTER 2019-10-06 12:06 | Observation (INO) | payer MEDICARE ==
[~2019-10-06] VITALS: Ht 182.9 cm; Wt 107.0 kg
[2019-10-06 12:45] LABS: COLLECTION METHOD CLEAN CATCH
[2019-10-06 12:51] LABS: BASO % 0.3 % (0.0-2.0); EOS % 0.3 % (0-4.0); GRAN # 9.7 (1.4-6.5); GRAN % 84.1 % (42.2-75.2); HEMOGLOBIN 11.3 g/dl (13.5-18.0); LYMPH # 0.7 (1.2-3.4); LYMPH % 6.3 % (20.0-51.0); MEAN CELL VOLUME 85 fl (80.0-100.0); MEAN CORPUSCULAR HEMOGLOBIN 27 pg (27.0-31.0); MEAN CORPUSCULAR HGB CONC 32 g/dl (33.0-37.0); MEAN PLATELET VOLUME 9.1 fl (7.4-10.4); MONO % 8.5 % (1.7-9.3); PLATELET COUNT 142 K/mm3 (130-400); RED BLOOD COUNT 4.19 M/mm3 (4.20-5.60); REDCELL DISTRIBUTION WIDTH-CV 15.8 % (11.5-14.5)
[2019-10-06 12:56] LABS: HEMATOCRIT 35.5 % (42.0-52.0)
[2019-10-06 13:03] LABS: ALANINE AMINOTRANSFERASE 74 U/L (4-49); ALBUMIN 3.8 gm/dL (3.5-5.0); ALKALINE PHOSPHATASE 283 U/L (50-136); ANION GAP 8 mmol/L (7-16); AST,SGOT 47 U/L (15-37); BILIRUBIN,TOTAL 1.2 mg/dL (0.0-1.0); BLOOD UREA NITROGEN 17 mg/dL (9-20); CALCIUM 8.6 mg/dL (8.4-10.2); CARBON DIOXIDE 27 mmol/L (22-30); CHLORIDE 94 mmol/L (98-107); GLUCOSE 124 mg/dL (74-106); POTASSIUM 4.5 mmol/L (3.4-5.0); SODIUM 128 mmol/L (137-145); TOTAL PROTEIN 7.5 gm/dL (6.4-8.2)
[2019-10-06 13:13] LABS: TROPONIN-I < 0.012 ng/mL (0.000-0.035)
[2019-10-06 13:18] LABS: MUCOUS Present /lpf; PH 9 (5-8); SQUAMOUS EPITHELIAL 0-2 /hpf; URINE APPEARANCE Hazy; URINE BACTERIA Rare /hpf; URINE BILIRUBIN Negative (NEGATIVE); URINE BLOOD 1+ (NEGATIVE); URINE COLOR Yellow; URINE GLUCOSE Negative (NEGATIVE); URINE KETONE Negative (NEGATIVE); URINE LEUKOCYTE ESTERASE Negative (NEGATIVE); URINE NITRATE Positive (NEGATIVE); URINE PROTEIN(semi-quant) Negative (NEGATIVE); URINE RBC 0-2 /hpf; URINE UROBILINOGEN Negative (NEGATIVE)
[2019-10-06 13:22] LABS: INR 1.2 (0.8-3.0); PROTHROMBIN TIME 13.8 SECONDS (9.7-12.8)
[2019-10-06 13:30] LABS: C-REACTIVE PROTEIN 24.5 mg/dL (0.0-0.9)
[2019-10-06 17:35] VITALS: BP 111/53; PULSE 74; TEMP 98.3
[2019-10-06] MEDS ORDERED: PROZAC 10MG10 MG PO (17:38)
--- NOTE | 2019-10-06 17:53 | NUR ---
Admission assessment completed, alert/oriented, vital signs stable/ afebrile sence arrival to Medical floor, report general aches / myalgias, heart RRR, SR on tele, lugns CTA/ diminished RLL, CXR shows RLL consolidation, has urostomy to dependent drainage/ UA + for UTI, PUI /COVID screen pending and is in p/c per protocol, meds/pharmacy/allergies reviewed, [facility]
--- NOTE | 2019-10-06 19:25 | NUR ---
Received report from Tank. Deja KEITH, called to say that patient is having chills and requesting for warm blanket and to check his temperature as well. Patient is afebrile with temp of 99.3F. Will recheck again his temp at 2100H. Patient is alert and oriented. With Urostomy bag draining clear, yellow urine. Denies any pain. On room-air.
[2019-10-06 19:26] VITALS: BP 122/68; PULSE 78; TEMP 99.3
[2019-10-06 20:58] VITALS: TEMP 100
[2019-10-07 00:07] VITALS: BP 106/56; PULSE 74; TEMP 99.1
[2019-10-07 01:09] VITALS: TEMP 99.7
--- NOTE | 2019-10-07 02:30 | NUR ---
Patient is covid negative. Informed him and transferred him to . 359.
[2019-10-07 03:08] VITALS: BP 107/57; PULSE 70; TEMP 99
--- NOTE | 2019-10-07 06:07 | NUR ---
Patient had an uneventful night. Had highest temp of 100F throughout the shift but then otherwise he's afebrile. Denies any pain. Will endorse to day shift nurse.
[2019-10-07 07:14] VITALS: BP 106/68; PULSE 64; TEMP 98.2
[2019-10-07 08:41] LABS: BASO % 0.3 % (0.0-2.0); EOS # 0.1 (0.0-0.7); EOS % 0.8 % (0-4.0); GRAN # 6.4 (1.4-6.5); HEMOGLOBIN 10.5 g/dl (13.5-18.0); LYMPH # 0.7 (1.2-3.4); LYMPH % 8.4 % (20.0-51.0); MEAN CELL VOLUME 85 fl (80.0-100.0); MEAN CORPUSCULAR HEMOGLOBIN 28 pg (27.0-31.0); MEAN CORPUSCULAR HGB CONC 32 g/dl (33.0-37.0); MEAN PLATELET VOLUME 9.1 fl (7.4-10.4); MONO # 0.6 (0.1-0.6); MONO % 7.9 % (1.7-9.3); PLATELET COUNT 134 K/mm3 (130-400); REDCELL DISTRIBUTION WIDTH-CV 15.9 % (11.5-14.5)
[2019-10-07 08:49] LABS: HEMATOCRIT 32.4 % (42.0-52.0)
[2019-10-07 08:53] LABS: ALBUMIN 3.5 gm/dL (3.5-5.0); BILIRUBIN,TOTAL 0.9 mg/dL (0.0-1.0); CALCIUM 8.4 mg/dL (8.4-10.2); CREATININE, serum 1.67 (0.66-1.25); POTASSIUM 4.3 mmol/L (3.4-5.0); TOTAL PROTEIN 7.1 gm/dL (6.4-8.2)
--- NOTE | 2019-10-07 09:25 | NUR ---
Pt assessment completed. Pt alert and oriented x4. Pt denies pain at this time. IVF infusing per orders to left ac IV. Urostomy to right lower quadrant to dependent drainage with clear yellow urine. Pt denies any other needs at this time. Call light within reach. Will continue to monitor.
[2019-10-07 11:31] VITALS: BP 108/61; PULSE 68; TEMP 97.9
[2019-10-07] MEDS ORDERED: LEVAQUIN 750MG750 M1 PO (13:34)
--- NOTE | 2019-10-07 13:45 | NUR ---
Field Contact Technician stopped by and visited briefly. Patient made comment about needing rest so home health aide made it short.
--- NOTE | 2019-10-07 14:50 | NUR ---
Discharge instructions provided and explained to pt including instructions on medications and follow up appointments. Pt verbalized understanding of all discharge instructions and denies any questions at this time. IV to left AC discontinued. Pt escorted out with all personal belongings by this RN.
== END 2019-10-07 14:50 | disposition home or self-care (01) ==
LOC: COL.ER 12:06 → PEDS 13:38 → MEDICAL 10-07 02:16
PROVIDERS: Emergency Medicine; Physician Assistant; ADMIT Family Medicine
DX: A41.9 Sepsis, unspecified organism (principal); J18.9 Pneumonia, unspecified organism; E87.1 Hypo-osmolality and hyponatremia; E87.8 Other disorders of electrolyte and fluid balance, not elsewhere classified; I12.9 Hypertensive chronic kidney disease with stage 1 through stage 4 chronic kidney disease, or unspecified chronic kidney disease; N18.9 Chronic kidney disease, unspecified; Z90.5 Acquired absence of kidney; D64.9 Anemia, unspecified; I25.10 Atherosclerotic heart disease of native coronary artery without angina pectoris; F32.9 Major depressive disorder, single episode, unspecified; F41.9 Anxiety disorder, unspecified; F43.10 Post-traumatic stress disorder, unspecified; Z85.828 Personal history of other malignant neoplasm of skin; N39.0 Urinary tract infection, site not specified; Z79.82 Long term (current) use of aspirin; Z87.891 Personal history of nicotine dependence; Z82.3 Family history of stroke
CPT/HCPCS: G0378; J1644; J1956; J7030

== ENCOUNTER → 2020-08-20 | Outpatient (CLI) | payer OTHER ==
[~2020-08-20] MED LIST changes: +GLUCOTROL10 MG PO; +LEVAQUIN 750MG750 M1 PO; +OMNICEF 300MG300 MG PO; +PROZAC 10MG10 MG PO; +ZITHROMAX Z PA250 MG PO
== END ==
LOC: COL.RAD 09:47
DX: C66.9 Malignant neoplasm of unspecified ureter (principal); C67.9 Malignant neoplasm of bladder, unspecified; Z90.6 Acquired absence of other parts of urinary tract
CPT/HCPCS: Q9967

== ENCOUNTER 2020-09-25 13:02 | Emergency (ER) | payer OTHER ==
[~2020-09-25] VITALS: Ht 182.9 cm; Wt 110.0 kg
[~2020-09-25 13:02] MED LIST changes: -GLUCOTROL10 MG PO; -OMNICEF 300MG300 MG PO; -ZITHROMAX Z PA250 MG PO
[2020-09-25 13:08] VITALS: TEMP 98.7
[2020-09-25 13:58] LABS: BASO % 0.4 % (0.0-2.0); EOS # 0.2 (0.0-0.7); EOS % 2.5 % (0-4.0); GRAN # 6.8 (1.4-6.5); GRAN % 73.5 % (42.2-75.2); HEMATOCRIT 42.7 % (42.0-52.0); HEMOGLOBIN 14.1 g/dl (13.5-18.0); LYMPH # 1.3 (1.2-3.4); LYMPH % 13.6 % (20.0-51.0); MEAN CELL VOLUME 85 fl (80.0-100.0); MEAN CORPUSCULAR HEMOGLOBIN 28 pg (27.0-31.0); MEAN CORPUSCULAR HGB CONC 33 g/dl (33.0-37.0); MONO # 0.9 (0.1-0.6); MONO % 9.8 % (1.7-9.3); PLATELET COUNT 187 K/mm3 (130-400); RED BLOOD COUNT 5.01 M/mm3 (4.20-5.60); REDCELL DISTRIBUTION WIDTH-CV 15.2 % (11.5-14.5)
[2020-09-25 14:22] LABS: ALBUMIN 4.4 gm/dL (3.5-5.0); BILIRUBIN,TOTAL 0.7 mg/dL (0.0-1.0); C-REACTIVE PROTEIN 2.6 mg/dL (0.0-0.9); CALCIUM 9.2 mg/dL (8.4-10.2); CREATININE, serum 1.54 (0.66-1.25); POTASSIUM 4.8 mmol/L (3.4-5.0); TOTAL PROTEIN 8.1 gm/dL (6.4-8.2)
[2020-09-25] MEDS ORDERED: ZITHROMAX Z PA250 MG PO (15:52)
[2020-09-25] MEDS ORDERED: OMNICEF 300MG300 MG PO (15:52)
[2020-09-25 16:14] VITALS: BP 121/78; PULSE 71
== END 2020-09-25 16:15 | disposition home or self-care (01) ==
LOC: COL.ER 13:02
PROVIDERS: Emergency Medicine
DX: J18.9 Pneumonia, unspecified organism (principal); R79.82 Elevated C-reactive protein (CRP); Z85.51 Personal history of malignant neoplasm of bladder
CPT/HCPCS: J0696; J2405; J3010; J7030

== ENCOUNTER → 2021-02-03 | Outpatient (CLI) | payer OTHER ==
[~2021-02-03] MED LIST changes: +GLUCOTROL10 MG PO; +OMNICEF 300MG300 MG PO; +ZITHROMAX Z PA250 MG PO
== END ==
LOC: COL.RAD 12:45
DX: N43.0 Encysted hydrocele (principal); I86.1 Scrotal varices; N50.82 Scrotal pain

== ENCOUNTER 2021-02-20 15:24 | Emergency (ER) | payer OTHER ==
[~2021-02-20] VITALS: Ht 182.9 cm; Wt 113.6 kg
[~2021-02-20 15:24] MED LIST changes: -GLUCOTROL10 MG PO
[2021-02-20 15:33] VITALS: TEMP 98
[2021-02-20 16:16] LABS: BASO # 0.1 K/mm3 (0.0-0.2); BASO % 0.7 % (0.0-2.0); EOS # 0.2 K/mm3 (0.0-0.7); EOS % 1.9 % (0-4.0); GRAN # 8.4 K/mm3 (1.4-6.5); HEMATOCRIT 41.8 % (42.0-52.0); HEMOGLOBIN 14.4 g/dl (13.5-18.0); LYMPH # 2.1 K/mm3 (1.2-3.4); LYMPH % 17.9 % (20.0-51.0); MEAN CELL VOLUME 81 fl (80.0-100.0); MEAN CORPUSCULAR HEMOGLOBIN 28 pg (27.0-31.0); MEAN CORPUSCULAR HGB CONC 34 g/dl (33.0-37.0); MEAN PLATELET VOLUME 9.5 fl (7.4-10.4); MONO # 0.9 K/mm3 (0.1-0.6); MONO % 7.9 % (1.7-9.3); PLATELET COUNT 227 K/mm3 (130-400); RED BLOOD COUNT 5.18 M/mm3 (4.20-5.60); REDCELL DISTRIBUTION WIDTH-CV 14.6 % (11.5-14.5)
[2021-02-20 16:45] LABS: ALBUMIN 3.9 gm/dL (3.5-5.0); BILIRUBIN,TOTAL 0.6 mg/dL (0.2-1.2); CALCIUM 9.8 mg/dL (8.4-10.2); CREATININE, serum 2.35 mg/dL (0.72-1.25); POTASSIUM 3.9 mmol/L (3.5-4.5); TOTAL PROTEIN 7.9 gm/dL (6.2-8.1)
[2021-02-20 16:54] LABS: COLLECTION METHOD CLEAN CATCH
[2021-02-20 17:02] LABS: AMORPHOUS CRYSTAL Present /uL; PH 7 (5-8); SQUAMOUS EPITHELIAL None Seen /hpf; URINE APPEARANCE Cloudy; URINE BACTERIA Moderate /hpf; URINE BILIRUBIN Negative (NEGATIVE); URINE BLOOD Negative (NEGATIVE); URINE COLOR Yellow; URINE GLUCOSE 3+ (NEGATIVE); URINE KETONE Negative (NEGATIVE); URINE LEUKOCYTE ESTERASE Negative (NEGATIVE); URINE NITRATE Negative (NEGATIVE); URINE PROTEIN(semi-quant) Negative (NEGATIVE); URINE RBC 0-2 /hpf; URINE UROBILINOGEN Negative (NEGATIVE)
[2021-02-20 18:22] VITALS: BP 128/84; PULSE 73
[2021-02-20] MEDS ORDERED: GLUCOTROL10 MG PO (18:22)
== END 2021-02-20 18:28 | disposition home or self-care (01) ==
LOC: COL.ER 15:24
PROVIDERS: Personal Emergency Response Attendant
DX: E11.65 Type 2 diabetes mellitus with hyperglycemia (principal); N28.9 Disorder of kidney and ureter, unspecified; I25.10 Atherosclerotic heart disease of native coronary artery without angina pectoris; Z79.82 Long term (current) use of aspirin
CPT/HCPCS: J1815; J7030

== ENCOUNTER → 2021-09-04 | Outpatient (CLI) | payer OTHER ==
[~2021-09-04] MED LIST changes: +GLUCOTROL10 MG PO; +LANTUS100 U/ML SQ; +MELATONIN3 M1
== END ==
LOC: COL.RAD 10:26
DX: Z85.528 Personal history of other malignant neoplasm of kidney (principal); Z90.5 Acquired absence of kidney

== ENCOUNTER 2021-09-09 07:42 | Day surgery (SDC) | payer OTHER ==
[~2021-09-09] VITALS: Ht 182.9 cm; Wt 111.4 kg
[~2021-09-09 07:42] MED LIST changes: -LANTUS100 U/ML SQ; -MELATONIN3 M1
[2021-09-09] MEDS ORDERED: LANTUS100 U/ML SQ (09:01)
[2021-09-09] MEDS ORDERED: MELATONIN3 M1 (09:02)
[2021-09-09 09:03] VITALS: BP 154/82; PULSE 62; TEMP 98
[2021-09-09 11:50] VITALS: BP 132/72; PULSE 62; TEMP 97.4
--- NOTE | 2021-09-09 11:50 | NUR ---
PT TO BAY 2 PER CART FROM PACU. RECEIVED REPORT FROM NOAM AGUIRRE. ORIENTED PT TO CALL LIGHT. CALL LIGHT WITHIN REACH. PT DENIES ANY NEEDS AT THIS TIME.
[2021-09-09 12:05] VITALS: BP 127/75; PULSE 63
--- NOTE | 2021-09-09 12:05 | NUR ---
PT TOLERATING SF PUDDING AND DIET SPRITE. DENIES ANY DISCOMFORT AT THIS TIME. WILL CONTINUE TO MONITOR.
[2021-09-09 12:20] VITALS: BP 127/91; PULSE 64
--- NOTE | 2021-09-09 12:20 | NUR ---
PT CONTINUES TO DENY AND DISCOMFORT. PT STATES HE IS READY FOR DISCHARGE.
--- NOTE | 2021-09-09 12:30 | NUR ---
IV DC'D. PT TOLERATED WELL.
--- NOTE | 2021-09-09 12:40 | NUR ---
DISCHARGE EDUCATION COMPLETED WITH PT. PT VERBALIZED UNDERSTANDING OF HOME AND FOLLOW UP CARE. ALL QUESTIONS ANSWERED. DISCHARGE PAPERWORK GIVEN TO PT.
--- NOTE | 2021-09-09 13:00 | NUR ---
PT OFF UNIT PER WHEELCHAIR. PT DISCHARGE TO HOME WITH SON-IN-LAW PER PERSONAL VEHICLE.
[2021-09-09 13:09] VITALS: BP 132/72; PULSE 59; TEMP 98.1
== END 2021-09-09 13:00 | disposition home or self-care (01) ==
LOC: SDCO 07:42
DX: N43.3 Hydrocele, unspecified (principal); E11.22 Type 2 diabetes mellitus with diabetic chronic kidney disease; E11.40 Type 2 diabetes mellitus with diabetic neuropathy, unspecified; I12.9 Hypertensive chronic kidney disease with stage 1 through stage 4 chronic kidney disease, or unspecified chronic kidney disease; N18.30 Chronic kidney disease, stage 3 unspecified; K21.9 Gastro-esophageal reflux disease without esophagitis; F17.210 Nicotine dependence, cigarettes, uncomplicated; Z85.59 Personal history of malignant neoplasm of other urinary tract organ; Z85.51 Personal history of malignant neoplasm of bladder; Z86.16 Personal history of COVID-19; Z85.53 Personal history of malignant neoplasm of renal pelvis; Z28.310 Unvaccinated for COVID-19; Z28.9 Immunization not carried out for unspecified reason; Z79.4 Long term (current) use of insulin; Z79.82 Long term (current) use of aspirin; Z95.5 Presence of coronary angioplasty implant and graft
CPT/HCPCS: J0690; J1100; J2405; J2704; J3010; J7030